=== PATIENT | female | born 1985 | race Caucasian/White ===

== ENCOUNTER 2021-10-02 20:30 | Inpatient (IN) | payer OTHER, SELFPAY ==
[2021-10-02 20:31] VITALS: BP 120/86; PULSE 92; RESP 18; TEMP 36.6; O2SAT 97
[2021-10-02 20:44] VITALS: BMI 30.4
[2021-10-02] MEDS: ARIPiprazole 10 mg Tablet 5 MG PO (21:00)
[2021-10-02] MEDS: haloperidol 5 mg Tablet PO (21:00)
[2021-10-02] MEDS: trazodone 50 mg Tablet PO (21:00)
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
[2021-10-02 21:52] VITALS: BP 120/86; PULSE 92; RESP 18; TEMP 36.6
[2021-10-03 06:00] VITALS: BP 129/80; PULSE 88; RESP 17; TEMP 36.7; O2SAT 94
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
[2021-10-03 14:00] VITALS: BP 122/74; PULSE 89; RESP 16; TEMP 36.8; O2SAT 97
[2021-10-03] MEDS: nicotine 21 mg Patch 1 PATCH TRANSDERMA (15:54)
[2021-10-03] MEDS: hyDROXYzine 25 mg Capsule 50 MG PO (18:27)
--- NOTE | 2021-10-03 18:28 | PC.NURSE ---
PRN MED PT GIVEN 50MG VISTARIL FOR STATED ANXIETY, WILL CONTINUE TO MONITOR.
[2021-10-03 21:17] VITALS: BP 127/79; PULSE 89; RESP 16; TEMP 37; O2SAT 95
[2021-10-03] MEDS: LORazepam 2 mg Tablet PO (21:57)
[2021-10-03] MEDS: ARIPiprazole 10 mg Tablet 5 MG PO (21:57)
[2021-10-03] MEDS: haloperidol 5 mg Tablet PO (21:57)
[2021-10-04 06:00] VITALS: RESP 16
[2021-10-04 14:00] VITALS: RESP 18
[2021-10-04] MEDS: hyDROXYzine 25 mg Capsule 50 MG PO (16:19)
--- NOTE | 2021-10-04 17:15 | P.NPUPN_ITS ---
Subjective NPU Subjective: Patient presents today reporting that she is doing better than she was yesterday. She still is being somewhat elusive about why she ended up on the 96-hour hold and still was denying substance use. We continue to discuss safety concerns and she lobbied for discharge saying that by being in here she was missing work. We discussed the fact that we cannot know how to prevent what happened leading up to the admission if we did know why it happened. We agreed to discuss the situation again in the morning. Mental Status Exam MSE Comments: This is an overweight versus obese female in hospital scrubs with adequate grooming and eye contact. No abnormal movements except for psychomotor retardation. Cooperative with exam in no acute distress. Speech was normal rate and volume. Mood described as fine, affect is congruent. Thought process, organized. Thought content: patient denies any suicidal or homicidal ideation, no delusions reported or noted, and denies any auditory or visual hallucinations. Attention and concentration are intact and memory is reliable but none were formally tested. She is alert and oriented three times. Insight and judgment are fair. Impulse control is fair. Vitals/I&O/Wt Last Vital Signs Temp 98.6 F 10/03/21 21:17 Pulse 89 10/03/21 21:17 Resp 16 10/04/21 06:00 BP 127/79 10/03/21 21:17 Pulse Ox 95 10/03/21 21:17 Weight last 48 hrs Weight 90.718 kg Weight 90.718 kg A&P Assessment and plan (1) PTSD (post-traumatic stress disorder): Status: Acute (2) Involuntary commitment: Status: Acute (3) Suicidal ideation: Status: Acute (4) Opioid use disorder, severe, dependence: Status: Acute (5) Methamphetamine use disorder, severe: Status: Acute Plan This is a 36 year old female with a history of trauma and no reported genetic loading for mental health or addiction issues who presents with a positive drug screen despite reporting no active use, who presents denying lethality and endorsing wanting to be discharged to go home despite multiple affidavits. We discussed the risks, benefits and alternatives of continuing her current medications and she understood and agreed to proceed as is documented in this note. 1. Continue current medications 2. Encourage individual, group and milieu therapy 3. Continue q-15 minute check for safety 4. Recommend sober living treatment at the highest level of care to which the patient is willing to commit. 5. Assess for safety given the 96-hour hold. Involuntary Hold Information 96 Hour Hold: 96 Hour Involuntary Admission: Yes 96 Hour Hold Ending Date: 10/08/21 96 Hour Hold Ending Time: 20:10 Attestations NPU Medical Necessity Statement*: Inpatient hospitalization is medically necessary and the clinically appropriate intervention at this time. We will monitor medications and make changes as indicated. Likely length of stay is 2-4 days. Coding Level of Care Code Acute Hydro Station Supervisor for [facility] Fwd Diagnoses PTSD (post-traumatic stress disorder) F43.10 Involuntary commitment Z04.6 Suicidal ideation R45.851 Opioid use disorder, severe, dependence F11.20 Methamphetamine use disorder, severe F15.20
[2021-10-04 20:12] VITALS: BP 125/76; PULSE 84; RESP 18; TEMP 36.5; O2SAT 95
[2021-10-04] MEDS: haloperidol 5 mg Tablet PO (20:54)
[2021-10-04] MEDS: ARIPiprazole 10 mg Tablet 5 MG PO (20:54)
[2021-10-05 06:00] VITALS: RESP 16
[2021-10-05] MEDS: nicotine 21 mg Patch 1 PATCH TRANSDERMA (08:01)
[2021-10-05] MEDS: hyDROXYzine 25 mg Capsule 50 MG PO (12:43)
[2021-10-05 14:00] VITALS: BP 123/80; PULSE 88; RESP 17; TEMP 36.2; O2SAT 100
--- NOTE | 2021-10-05 17:54 | W.PM.NPUPNS ---
Subjective NPU Subjective: Patient presents today reporting that she feels ready to go. For the first time she acknowledged the circumstances of her admission. Unlike previous days she was able to vocalize that in fact she had used and that the screen was accurate. We discussed how critical it is for her wellness but she believes modest about her circumstance. We were able to reach out to her significant other he also expressed concerns about her functioning independently as she returns to live alone. He reported that she does take medication for brief period of time and then will sabotage herself by returning to her addiction which she has downplayed significantly. Just waiting for the social work team tomorrow to make sure that she has at least appropriate referrals prior to discharge. Mental Status Exam MSE Comments: This is an overweight versus obese female in hospital scrubs with adequate grooming and eye contact. No abnormal movements except for mild psychomotor retardation. Cooperative with exam in no acute distress. Speech was normal rate and volume. Mood described as good but ready to go home., affect is congruent. Thought process, organized. Thought content: patient denies any suicidal or homicidal ideation, no delusions reported or noted, and denies any auditory or visual hallucinations. Attention and concentration are intact and memory is reliable but none were formally tested. She is alert and oriented three times. Insight and judgment are fair. Impulse control is fair. Vitals/I&O/Wt Last Vital Signs Temp 97.5 F L 10/05/21 21:38 Pulse 86 10/05/21 21:38 Resp 14 10/05/21 21:38 BP 134/88 10/05/21 21:38 Pulse Ox 95 10/05/21 21:38 Weight last 48 hrs Weight 90.718 kg Weight 90.718 kg A&P Assessment and plan (1) PTSD (post-traumatic stress disorder): Status: Acute (2) Involuntary commitment: Status: Acute (3) Suicidal ideation: Status: Acute (4) Opioid use disorder, severe, dependence: Status: Acute (5) Methamphetamine use disorder, severe: Status: Acute Plan This is a 36 year old female with a history of trauma and no reported genetic loading for mental health or addiction issues who presents with a positive drug screen despite reporting no active use, who presents denying lethality and endorsing wanting to be discharged to go home despite multiple affidavits. We discussed the risks, benefits and alternatives of continuing her current medications and she understood and agreed to proceed as is documented in this note. 1.? Continue current medications 2.? Encourage individual, group and milieu therapy 3.? Continue q-15 minute check for safety 4.? Recommend sober living treatment at the highest level of care to which the patient is willing to commit. 5.? Plan for discharge tomorrow. Involuntary Hold Information 96 Hour Hold: 96 Hour Involuntary Admission: Yes 96 Hour Hold Ending Date: 10/08/21 96 Hour Hold Ending Time: 20:10 Attestations NPU Medical Necessity Statement*: Inpatient hospitalization is medically necessary and the clinically appropriate intervention at this time. We will monitor medications and make changes as indicated. Likely length of stay is 1-3 days. Coding Level of Care Code Acute Grain Broker And Market Operator for Jillian Willis Diagnoses PTSD (post-traumatic stress disorder) F43.10 Involuntary commitment Z04.6 Suicidal ideation R45.851 Opioid use disorder, severe, dependence F11.20 Methamphetamine use disorder, severe F15.20
[2021-10-05] MEDS: OLANZapine 5 mg ODT PO (18:15)
--- NOTE | 2021-10-05 18:16 | PC.NURSE ---
xyprexa given for anxiety as ordered.
[2021-10-05 20:17] VITALS: BP 134/88; PULSE 86; RESP 14; TEMP 36.4; O2SAT 95
[2021-10-05] MEDS: trazodone 50 mg Tablet PO (20:23)
[2021-10-05] MEDS: haloperidol 5 mg Tablet PO (20:24)
[2021-10-05] MEDS: ARIPiprazole 10 mg Tablet 5 MG PO (20:24)
[2021-10-05 21:38] VITALS: BP 134/88; PULSE 86; RESP 14; TEMP 36.4; O2SAT 95
[2021-10-06 06:00] VITALS: BP 110/71; PULSE 87; RESP 14; TEMP 36.8; O2SAT 96
--- NOTE | 2021-10-06 08:44 | PC.NURSE ---
RESTING IN ROOM, AROUSES TO VOICE. REPORTS SHE SLEPT WELL AND ATE BREAKFAST. DENIES PAIN. DENIES SI/HI AND AVH AT THIS TIME. STATES, I JUST WANT TO GO BACK TO SLEEP, SO SHUT THE DOOR. I ROOM RESTING.
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
[2021-10-06 10:51] VITALS: BP 110/71; PULSE 87; RESP 14; TEMP 36.8; O2SAT 96
--- NOTE | 2021-10-06 11:11 | PC.NURSE ---
DISCHARGE NOTE DISCHARGE TEACHING COMPLETED. MEDICATIONS SENT TO [facility] DIRECTED BY PT. REVIEWED UPCOMING APPOINTMENTS. SIGNED BELONGINGS SHEET. ALL PROPERTY RETURNED. ALL QUESTIONS ANSWERED AND SUPPORT VOICED. VSS. DENIES PAIN. DENIES SI/HI AND AVH AT TIME OF DISCHARGE. DISCHARGED WITH [facility] WITH ALL BELONGINGS, DISCHARGE PAPER WORK. PT STATES SHE WILL FINISH CLEANER HER SCRIPTS WHEN SHE ARRIVES IN [place].
== END 2021-10-06 11:24 | disposition home or self-care (01) | DRG 897 ==
PROVIDERS: Admitting Provider Psychiatry & Neurology Psychiatry; Visit Provider Psychiatry & Neurology Psychiatry
DX: F15.20 Other stimulant dependence, uncomplicated (principal); F11.20 Opioid dependence, uncomplicated; R45.851 Suicidal ideations; F43.10 Post-traumatic stress disorder, unspecified; Z04.6 Encounter for general psychiatric examination, requested by authority
CPT/HCPCS: 97150; 97165